=== PATIENT | female | born 1985 | race Caucasian/White ===

== ENCOUNTER 2022-02-08 08:26 | Inpatient (IN) | payer OTHER, SELFPAY ==
[2022-02-08] MEDS ORDERED: Ondansetron PF 4 MG/2 ML Vial IVP PRN (14:45)
[2022-02-08] MEDS ORDERED: Misoprostol 200 MCG TAB PR PRN (14:45)
[2022-02-08] MEDS ORDERED: Acetaminophen 500 MG TAB PO PRN (14:45)
[2022-02-08] MEDS ORDERED: hydrALAZINE 20 MG/ML VIAL SLOW IVP PRN (14:45)
[2022-02-08] MEDS ORDERED: HYDROcodone/Acetaminophen 5/325 mg Tablet PO PRN ×2 (14:45)
[2022-02-08] MEDS ORDERED: NS w/ Oxytocin 30 units 500 ML IV SCH (14:45)
[2022-02-08] MEDS ORDERED: Lactated Ringer's 1,000 ML IV SCH (14:45)
[2022-02-08] MEDS ORDERED: Carboprost 250 MCG/ML AMP IM PRN (14:45)
[2022-02-08] MEDS ORDERED: Promethazine HCl 25 MG/ML VIAL IM PRN (14:45)
[2022-02-08] MEDS ORDERED: Methylergonovine 0.2 MG/ML VIAL IM PRN (14:45)
[2022-02-08] MEDS ORDERED: Butorphanol Tartrate 1 MG/ML VIAL SLOW IVP PRN (14:45)
[2022-02-08] MEDS ORDERED: Diphenoxylate HCl/Atropine Tablet PO PRN ×2 (14:45)
[2022-02-08] MEDS ORDERED: Lidocaine 1% (PF) 30 ML VIAL SC PRN (14:45)
[2022-02-08] MEDS ORDERED: Ibuprofen 800 MG TAB PO PRN (14:45)
[2022-02-08 15:11] LABS: Hemoglobin 12.6 g/dL (12.0-15.5); Mean Corpuscular Hemoglobin 32.1 pg (27.0-33.0); Mean Corpuscular Volume 91.8 fl (81.6-98.3); Mean Platelet Volume 9.4 fl (7.4-10.4); Platelet Count 391 10x3/uL (150-450); RBC Distribution Width 13.2 % (11.5-14.5); Red Blood Cell (RBC) Count 3.92 10x6/uL (3.90-5.03)
[2022-02-08 15:16] VITALS: BMI 28.1
[2022-02-08 15:58] LABS: Hep B Surf Ag Non-Reactive S/CO (NonReactive); Syphilis Antibody Nonreactive (Nonreactive); Syphilis Antibody Index 0.04 S/CO (<1.00 Non-Reactive)
[2022-02-08 16:50] LABS: HIV (1/2) Antibody/Antigen Non-Reactive (NonReactive); HIV 1/2 INDEX 0.06 S/CO (<1.00)
[2022-02-08 17:26] LABS: HBSAg Index 0.13 S/CO (0-0.99)
[2022-02-08 17:32] LABS: SARS-CoV-2 NAA Rapid Test Not Detected (NotDetected)
[2022-02-09] MEDS ORDERED: Oxytocin 10 UNITS/ML VIAL ONE (00:46)
[2022-02-09] MEDS ORDERED: Milk Of Magnesia 30 ML UDCUP PO PRN (03:01)
[2022-02-09] MEDS ORDERED: HYDROcodone/Acetaminophen 5/325 mg Tablet PO PRN (03:01)
[2022-02-09] MEDS ORDERED: Bisacodyl 10 MG SUPP PR PRN (03:01)
[2022-02-09] MEDS ORDERED: Boostrix 0.5 ML (Tdap) VIAL IM ONE (03:01)
[2022-02-09] MEDS ORDERED: hydrALAZINE 20 MG/ML VIAL SLOW IVP PRN (03:01)
[2022-02-09] MEDS: Ferrous Sulfate 325 MG TAB PO SCH (08:11)
[2022-02-09] MEDS: Ibuprofen 800 MG TAB PO SCH ×3 (09:10→22:36)
[2022-02-09] MEDS: Docusate 100 MG CAP PO SCH ×2 (09:10→22:36)
[2022-02-10] MEDS: Ibuprofen 800 MG TAB PO SCH ×3 (04:57→22:38)
[2022-02-10] MEDS: Ferrous Sulfate 325 MG TAB PO SCH ×2 (08:09→15:15)
[2022-02-10] MEDS: Docusate 100 MG CAP PO SCH ×2 (08:12→22:38)
[2022-02-10] MEDS ORDERED: Benzocaine-Menthol 82.5 ML CAN TOP PRN (09:58)
[2022-02-11] MEDS: Ibuprofen 800 MG TAB PO SCH ×2 (05:50→14:55)
[2022-02-11 10:09] VITALS: BP 113/69; TEMP 98.2
[2022-02-11] MEDS: Ferrous Sulfate 325 MG TAB PO SCH (10:21)
[2022-02-11] MEDS: Docusate 100 MG CAP PO SCH (11:08)
== END 2022-02-11 14:50 | disposition home or self-care (01) | DRG 807 ==
LOC: CSHLD/OP 08:26 → CSHLD 14:20 → CSHPP 02-09 04:29
PROVIDERS: ADMIT Family Medicine; ATTEND Family Medicine
PROC: 10E0XZZ Delivery of Products of Conception, External Approach (ICD-10-PCS; principal; 2022-02-09)
PROC: 10907ZC Drainage of Amniotic Fluid, Therapeutic from Products of Conception, Via Natural or Artificial Opening (ICD-10-PCS; 2022-02-09)
PROC: 0HQ9XZZ Repair Perineum Skin, External Approach (ICD-10-PCS; 2022-02-09)
DX: O69.81X0 Labor and delivery complicated by cord around neck, without compression, not applicable or unspecified (principal); Z37.0 Single live birth; Z3A.40 40 weeks gestation of pregnancy; Z20.822 Contact with and (suspected) exposure to COVID-19; Z86.16 Personal history of COVID-19; Z88.0 Allergy status to penicillin; O70.0 First degree perineal laceration during delivery
CPT/HCPCS: 85027; 86780; 86850; 86900; 86901; 87340; 87389; 99285; J2001; U0002